=== PATIENT | male | born 1985 | race Caucasian/White ===

== ENCOUNTER 2021-07-25 15:23 | Outpatient (REF) | payer OTHER, SELFPAY ==
--- NOTE | ~2021-07-25 | XR_ITS ---
EXAMINATION: XR LUMBOSACRAL SPINE CLINICAL INFORMATION: M47.816 - Spondylosis without myelopathy or radiculopathy COMPARISON: None TECHNIQUE: Three views of the lumbosacral spine. FINDINGS: There is normal lumbar segmentation with 5 nonrib-bearing lumbar vertebrae of normal height. There is no lumbar vertebral compression, spondylolisthesis, or destructive process. There are mild degenerative disc changes L4-L5 with disc narrowing and vertebral spurring. No erosive change. The SI joints and visualized sacrum are unremarkable. XR/XR lumbar spine 2-3V IMPRESSION: Degenerative disc changes L4-L5.
== END 2021-07-25 15:24 | disposition home or self-care (01) ==
LOC: HO.XRAY 15:23
PROVIDERS: PCP Physician Assistant; Visit Provider Internal Medicine
DX: M47.816 Spondylosis without myelopathy or radiculopathy, lumbar region (principal); M62.830 Muscle spasm of back; Z79.899 Other long term (current) drug therapy
CPT/HCPCS: 72100; 99202

== ENCOUNTER → 2021-07-29 10:28 | Outpatient (BNVA) | payer OTHER, SELFPAY | PROVIDERS: PCP Physician Assistant; Visit Provider Internal Medicine ==

== ENCOUNTER 2022-09-26 10:09 | Outpatient (REF) | payer OTHER, SELFPAY ==
[2022-09-26 10:53] LABS: COVID-19 Test Negative (Negative); IDNOW Serial# BCCEAD1C
== END 2022-09-26 10:10 | disposition home or self-care (01) ==
LOC: HO.LAB 10:09
PROVIDERS: Visit Provider Internal Medicine
DX: Z20.822 Contact with and (suspected) exposure to COVID-19 (principal)
CPT/HCPCS: 87635; C9803